=== PATIENT | female | born 1990 | race Caucasian/White ===

== ENCOUNTER → 2019-09-03 12:15 | Outpatient (BNVA) | payer OTHER, SELFPAY | PROVIDERS: Family Provider Internal Medicine; PCP Internal Medicine; Visit Provider Nurse Practitioner Family | DX: M25.571 Pain in right ankle and joints of right foot (principal); R22.41 Localized swelling, mass and lump, right lower limb | CPT/HCPCS: 73610 ==

== ENCOUNTER → 2019-12-21 15:13 | Outpatient (BNVA) | payer BC, OTHER, SELFPAY | PROVIDERS: Family Provider Internal Medicine; PCP Internal Medicine; Referring Provider Dermatology; Visit Provider Dermatology | DX: L70.0 Acne vulgaris (principal); L73.9 Follicular disorder, unspecified; L91.0 Hypertrophic scar | CPT/HCPCS: 99203; 99204 ==

== ENCOUNTER 2020-01-03 17:47 | Outpatient (CLI) | payer BC, SELFPAY ==
[2020-01-05 02:47] LABS: Coronavirus Lab Test PTC Negative
== END 2020-01-03 17:48 | disposition home or self-care (01) ==
PROVIDERS: PCP Internal Medicine; Visit Provider Family Medicine
DX: Z20.828 Contact with and (suspected) exposure to other viral communicable diseases (principal)
CPT/HCPCS: 87635

== ENCOUNTER 2020-02-08 09:50 | Emergency (ER) | payer BC, SELFPAY ==
[2020-02-08 09:58] VITALS: PULSE 114; RESP 18; TEMP 36.3; O2SAT 99
--- NOTE | 2020-02-08 10:07 | XR_ITS ---
WS: [id number] Right foot, 3 views, 02/08/2020 Clinical Data: laceration with metal Comparison: None. Findings: No fractures or dislocations are seen. No bone destruction or erosion is noted. The joint spaces and soft tissues are normal. XR/XR foot RT min 3V* [id number] Impression: Negative right foot.
--- NOTE | 2020-02-08 10:08 | W.ED.WOUNDLC ---
HPI - Wound/Laceration General: Chief Complaint: Wound/Laceration Stated Complaint: Laceration Right Foot Time Seen by Provider: 02/08/20 09:52 History of Present Illness: HPI narrative: 29-year-old female patient presents to the emergency department with laceration to the right foot. She reports was looking for a toy for her child when her foot tangled up in a metal object. She was at home when occurred. Sustained laceration to the right foot. She reports tetanus shot up-to-date. She denies fall or other injuries. Onset (ago): hour(s) (1) Extremity Location: Right: foot Place: home Patient tetanus UTD: Yes Context: accidental Associated symptoms: Reports no associated symptoms; Denies chills, fever(s), nausea or vomiting Treatments prior to arrival: bandage Review of Systems General: Reports: 10 or more systems reviewed and unremarkable except in HPI and below Const: Denies: fever(s), chills or diaphoresis Eyes: Denies: blurry vision or eye redness ENMT: Denies: throat pain, dental pain or disequilibrium Card: Denies: chest pain, palpitations or irregular heart rhythm Resp: Denies: dyspnea, productive cough, non-productive cough or wheezing GI: Denies: abdominal pain, nausea or vomiting : Denies: difficulty voiding or dysuria Musc: Denies: back pain Skin/Breast: Reports: skin tenderness and other (laceration); Denies: rash or pruritus Neuro: Denies: headache(s), weakness in extremities or behavioral changes [place]/Lymph: Denies: easy bruising [facility] ED PFSH: Medical History (Updated 02/08/20 @ 10:53 by TULIO Cabrera) Sprain of right ankle Family History Grandfather Cancer Diabetes Father Cancer Social History Smoking and tobacco status: former smoker Quit status (tobacco): has quit using tobacco Second hand smoke exposure: Yes Alcohol intake: current Physical Exam Const: COMMON NORMALS: no acute distress, patient oriented x3, healthy appearing and alert GENERAL APPEARANCE: cooperative, comfortable and well hydrated HENMT: COMMON NORMALS: normocephalic, Normal external nose present and moist oral mucous membranes HEAD & SCALP: normocephalic NOSE: Normal external nose present Eye: COMMON NORMALS: Equal, round and reactive pupils present and EOMs intact bilaterally GENERAL EYE: appearance normal, both eyes and all related structures PUPIL: Yes Equal, round and reactive pupils present Neck/C-Spine: COMMON NORMALS: full ROM and no lymphadenopathy GENERAL: Yes normal visual inspection and Yes trachea midline CERVICAL SPINE: Yes cervical ROM normal Lymph: LYMPHATIC: no lymphadenopathy noted Chest: COMMONS NORMALS: normal inspection of the chest Resp: COMMON NORMALS: normal respiratory effort and clear to auscultation bilaterally EFFORT & INSPECTION: Yes able to speak in complete sentences AUSCULTATION: clear to auscultation bilaterally Cardio: COMMON NORMALS: regular rhythm, S1 normal heart sound present and S2 normal heart sound present RHYTHM: regular rhythm HEART SOUNDS: S1 normal heart sound present and S2 normal heart sound present GI: COMMON NORMALS: Soft to palpation and non-tender INSPECTION: Yes normal to inspection PALPATION: Yes Soft to palpation : COMMON NORMALS: Yes no CVA tenderness BLADDER/KIDNEY EXAM: Yes no CVA tenderness Back/Pelvis: COMMON NORMALS: no CVA tenderness and thoracic and lumbar spine normal to inspection Extremity: COMMON NORMALS: normal to inspection and capillary refill normal GENERAL: Yes normal exam except as noted EXTREMITY IMAGE (FRONT): 1. 4.5cm flap laceration Neuro: COMMON NORMALS: patient oriented x3 and no focal motor deficits SENSORIUM/ORIENTATION: Yes alert Psych: COMMON NORMALS: mental status grossly normal, Normal thought process present and cooperative ACTIVITY/MOTOR BEHAVIOR: Yes appropriate eye contact THOUGHT PROCESS: Normal thought process present Skin: COMMON NORMALS: no rashes or lesions noted and turgor normal GENERAL SKIN EXAM: no rashes or lesions noted and turgor normal WOUNDS: Yes wounds noted (4.5 cm laceration, flap distal 1st MTP, bleeding controlled) open Procedures Laceration Laceration 1: Site: lower extremity Side (If applicable): right Size (cm): 4.5 Description: flap and contaminated Depth: simple, single layer Local Anesthetic: lidocaine 1% and with epi Amount of anesthesia used (mL): 6 Pre-repair: wound explored, irrigated extensively, deep structures intact and extensive debridement Skin layer closed with: nylon Size (cm): 4-0 Number of sutures: 6 Technique: simple, interrupted Course Vital Signs: Vital signs: Vital Signs Temperature 97.3 F L 02/08/20 09:58 Pulse Rate 95 02/08/20 10:15 Respiratory Rate 16 02/08/20 10:15 Blood Pressure 149/87 02/08/20 10:15 Pulse Oximetry 99 02/08/20 10:15 MDM - Wound/Laceration Imaging Data^: Xray Ortho: Radiologist's impression: [address] [address] XRay Report Signed Patient: Danika Christianson Unit #: [id number] : 1990 Age/Sex: 29 / F ADM Date: 02/08/20 Loc: ER Room/Bed: Attending Dr: Ordering Provider/Ordering MD: Farzana Herrera Date of Service: 02/08/20 Procedure(s): XR foot RT min 3V* [id number] Accession Number(s): [id number] Report Number: [id number] WS: [id number] Right foot, 3 views, 02/08/2020 Clinical Data: laceration with metal Comparison: None. Findings: No fractures or dislocations are seen. No bone destruction or erosion is noted. The joint spaces and soft tissues are normal. XR/XR foot RT min 3V* [id number] Impression: Negative right foot. Dictated By: Cleopatra Strickland MD Signed By: Cleopatra Strickland MD Signed Date/Time: 02/08/20 1027 DD/ 1026 Discharge Plan Discharge Patient Disposition: Home Clinical Impression: Laceration of foot Qualifiers: Encounter type: initial encounter Laterality: right Qualified Code(s): S91.311A - Laceration without foreign body, right foot, initial encounter Condition: Stable Prescriptions: No Action duloxetine [Cymbalta] 60 mg capsule,delayed release(DR/EC) 60 mg PO DAILY RF: 0 adapalene 0.3 % gel 1 applic TOPICAL DAILY Qty: 45 RF: 2 clindamycin-benzoyl peroxide 1.2 %(1 % base) -5 % gel 1 applic TOPICAL DAILY Qty: 45 RF: 3 Mirena 20 mcg/24 hours (5 yrs) 52 mg intrauterine device INTRAUTERI RF: 0 Discharge Orders: Discharge Order (Routine); Ordered 02/08/20 Ordered By: Farzana Herrera Referrals: Simone Green MD [Primary Care Provider] - Discharge Diet: Usual diet Discharge Activity: Limit activity as instructed Patient Instructions: Suture Care (ED), Laceration (ED) Activity Restrictions/Additional Instructions: Sutures out in 7 days Return to the emergency department if you develop redness, swelling around the wound, red streaking from the wound going up the foot. Avoid pressure on the sutures, keep the wound clean and dry, may apply triple antibiotic ointment as needed. Coding Level of Care Code ED Date Pitter for Chg Fwd Exam Comprehensive
[2020-02-08 10:15] VITALS: BP 149/87; PULSE 95; RESP 16; O2SAT 99
[2020-02-08 11:21] VITALS: BP 135/67; PULSE 86; RESP 17; O2SAT 99
== END 2020-02-08 11:23 | disposition home or self-care (01) ==
PROVIDERS: Emergency Provider Nurse Practitioner Family; PCP Internal Medicine
DX: S91.311A Laceration without foreign body, right foot, initial encounter (principal); Z87.891 Personal history of nicotine dependence; W26.8XXA Contact with other sharp object(s), not elsewhere classified, initial encounter
CPT/HCPCS: 12002; 12345; 73630; 99281; 99282

== ENCOUNTER → 2021-09-23 16:00 | Outpatient (BNVA) | payer BC, SELFPAY | PROVIDERS: PCP Internal Medicine; Visit Provider Podiatrist Foot & Ankle Surgery | DX: M79.672 Pain in left foot (principal) | CPT/HCPCS: 73630 ==

== ENCOUNTER → 2022-01-29 10:25 | Outpatient (BNVA) | payer BC, SELFPAY | PROVIDERS: PCP Family Medicine; Visit Provider Family Medicine | DX: F41.1 Generalized anxiety disorder (principal); Z13.6 Encounter for screening for cardiovascular disorders | CPT/HCPCS: 80053; 80061; 84443; 85025 ==

== ENCOUNTER → 2023-02-23 09:19 | Outpatient (BNVA) | payer BC, SELFPAY | PROVIDERS: PCP Family Medicine; Visit Provider Family Medicine | DX: E78.5 Hyperlipidemia, unspecified (principal) | CPT/HCPCS: 80053; 80061; 85025 ==

== ENCOUNTER → 2023-07-26 11:05 | Outpatient (BNVA) | payer BC, SELFPAY | PROVIDERS: PCP Family Medicine; Visit Provider Family Medicine | DX: E78.5 Hyperlipidemia, unspecified (principal) | CPT/HCPCS: 80053; 80061; 83036 ==

== ENCOUNTER → 2023-10-04 11:51 | Outpatient (BNVA) | payer BC, SELFPAY | PROVIDERS: PCP Family Medicine; Visit Provider Family Medicine | DX: Z01.419 Encounter for gynecological examination (general) (routine) without abnormal findings (principal) | CPT/HCPCS: 87624 ==

== ENCOUNTER → 2024-03-27 10:37 | Outpatient (BNVA) | payer BC, SELFPAY | DX: E78.5 Hyperlipidemia, unspecified (principal) | CPT/HCPCS: 80053; 80061 ==

== ENCOUNTER → 2025-04-09 09:52 | Outpatient (BNVA) | payer BC, SELFPAY | DX: E78.5 Hyperlipidemia, unspecified (principal) | CPT/HCPCS: 80053; 80061 ==